=== PATIENT | male | born 1980 | race Caucasian/White ===

== ENCOUNTER 2023-12-08 22:52 | Emergency (ER) | payer OTHER ==
[2023-12-08] MEDS ORDERED: Tetracaine 0.5% PF 4 ML BOT ONE (23:06)
[2023-12-08] MEDS ORDERED: Erythromycin Base 0.5% Ophth Oint 3.5 gm Tube ONE (23:06)
[2023-12-08] MEDS ORDERED: Maxitrol 0.1% Opth 5 ML BOT ONE (23:17)
== END 2023-12-08 23:30 | disposition home or self-care (01) ==
LOC: BURERS 22:52
DX: H10.9 Unspecified conjunctivitis (principal)
CPT/HCPCS: 99283